=== PATIENT | female | born 1970 | race Caucasian/White ===

== ENCOUNTER 2018-05-17 06:52 | Inpatient (IN) | payer MEDICAID ==
[~2018-05-17] VITALS: Ht 160 cm; Wt 70.8 kg
[2018-05-17] MEDS ORDERED: CEFOXITIN SODIUM 2 G in DEXT 5% WATER 100 ML IV ONE (07:00)
[2018-05-17] MEDS ORDERED: LIDOCAINE HCL 1% 20ML VIAL (Pyxis) INJ ONE (07:33)
[2018-05-17] MEDS ORDERED: BUPIVACAINE HCL/PF 0.5% (5MG/ML) 10ML ONE (07:34)
[2018-05-17] MEDS ORDERED: BACITRACIN 50,000 UNITS/VIAL ONE (07:34)
[2018-05-17] MEDS ORDERED: SKIN ADHESIVE 0.7 GM EA TOP ONE (07:34)
[2018-05-17] MEDS ORDERED: NORMAL SALINE 0.9% 10 ML SYR ONE (07:34)
[2018-05-17] MEDS ORDERED: INDOCYANINE GREEN 25 MG VIAL IV ONE (07:35)
[2018-05-17] MEDS ORDERED: LACTATED RINGERS 1,000 ML IV SCH (07:50)
[2018-05-17] MEDS ORDERED: FENTANYL CITRATE/PF 50MCG/ML 2ML VIAL ONE (08:51)
[2018-05-17] MEDS ORDERED: SODIUM CHLORIDE 0.9% 10ML VIAL ONE ×2 (08:52→10:08)
[2018-05-17] MEDS ORDERED: EPHEDRINE SULFATE 50MG/ML VIAL ONE (08:52)
[2018-05-17] MEDS ORDERED: SUCCINYLCHOLINE CHLORIDE 200MG/10ML IV ONE (08:52)
[2018-05-17] MEDS ORDERED: MIDAZOLAM HCL 2 MG/2 ML VIAL ONE (08:52)
[2018-05-17] MEDS ORDERED: CEFAZOLIN SODIUM 1000MG/VIAL ONE (08:52)
[2018-05-17] MEDS ORDERED: ROCURONIUM BROMIDE 10MG/ML VIAL 5ML IV ONE (08:52)
[2018-05-17] MEDS ORDERED: PROPOFOL 200MG/20ML VIAL IV ONE (08:54)
[2018-05-17] MEDS ORDERED: ONDANSETRON HCL 4MG/2ML INJ ONE (09:27)
[2018-05-17] MEDS ORDERED: HYDROCORTISONE SOD SUCCINATE 100 MG/2 ML VIAL ONE (09:27)
[2018-05-17] MEDS ORDERED: NEOSTIGMINE METHYLSULFATE 1MG/ML 10 ML VIAL ONE (09:44)
[2018-05-17] MEDS ORDERED: GLYCOPYRROLATE 0.2 MG/ML 2ML VIAL ONE (09:44)
[2018-05-17] MEDS ORDERED: HYDRALAZINE 20MG/ML VIAL ONE (10:08)
[2018-05-17] MEDS ORDERED: ONDANSETRON HCL 4MG/2ML INJ IV PRN (11:30)
[2018-05-17] MEDS ORDERED: SODIUM CHLORIDE 0.45% 1,000 ML IV SCH (11:30)
[2018-05-17] MEDS ORDERED: HYDROMORPHONE HCL/PF 2MG/ML CPJ IV PRN (11:30)
[2018-05-17] MEDS: HYDROMORPHONE HCL/PF 2MG/ML CPJ IV PRN ×2 (11:46→12:19)
[2018-05-17] MEDS: KETOROLAC 30MG/ML VIAL IV SCH ×2 (12:25→17:30)
[2018-05-17 14:00] VITALS: BP 116/72
[2018-05-17 16:00] VITALS: BP 116/72
[2018-05-17 20:00] VITALS: BP 107/64
[2018-05-18] VITALS: BP 115/65
[2018-05-18] MEDS: KETOROLAC 30MG/ML VIAL IV SCH ×2 (00:16→05:30)
[2018-05-18 04:00] VITALS: BP 98/54
[2018-05-18 08:00] VITALS: BP 114/69
[2018-05-18 09:00] VITALS: BP 114/69
== END 2018-05-18 10:00 | disposition home or self-care (01) | DRG 263 ==
LOC: OR 06:52 → 6EST 06:53 → EDBD 09:00
PROVIDERS: ADMIT Specialist; ATTEND Specialist
PROC: 0FT44ZZ Resection of Gallbladder, Percutaneous Endoscopic Approach (ICD-10-PCS; principal; 2018-05-17)
PROC: 8E0W4CZ Robotic Assisted Procedure of Trunk Region, Percutaneous Endoscopic Approach (ICD-10-PCS; 2018-05-17)
DX: K80.10 Calculus of gallbladder with chronic cholecystitis without obstruction (principal)
CPT/HCPCS: 88304; J0330; J0360; J0690; J0694; J1170; J1720; J1885; J2250; J2405; J2704; J2710; J3010; J3490; J7060; Q9957